=== PATIENT | male | born 1945 | race Hispanic/Latino ===

== ENCOUNTER 2019-01-11 06:03 | Day surgery (SDC) | payer MEDICARE ==
[2019-01-01 18:32] VITALS: BMI 28.1
[2019-01-11] MEDS ORDERED: Lactated Ringer's 1,000 ML IV ONE (07:00)
--- NOTE | 2019-01-11 07:24 | CP.SDSHP ---
Same Day Surgery H & P - History Proposed Procedure: Left shoulder arthroscopy Pre-Op Diagnosis: Left shoulder rotator cuff tear - Previous Medical/Surgical History Cardiac: Hypertension, ASHD/CAD, Arrhythmia (Atrial fibrillation) Misc: Other (HLD, hypothyroid, gout) Pain: 4.Moderate Pain Previous Surgical History: R shoulder arthroscopy, left foot surgery, hiatal hernia repair, lumbar spine surgery, cardiac ablation - Allergies Allergies: Allergies No Known Allergies Allergy (Verified 01/01/19 18:32) - Current Medications Current Medications: as per med rec - Physical Exam General Appearance: NAD Vital Signs: Vital Signs 01/11/19 06:50 Temperature 97.6 F Pulse Rate 53 L Respiratory 18 Rate Blood Pressure 113/69 O2 Sat by Pulse 95 Oximetry Mental Status: Alert & Oriented x3 Neuro: WNL Heart: WNL Lungs: WNL GI: WNL Social History: Alcohol (occasionally) - {Optional Preform as Required} Abdomen: WNL Integument: WNL Ortho: Other (Left shoulder: limited ROM 2nd to pain, motor and sensation intact AXN/MN/UN/RN, radial pulse intact) ENT: WNL - Impression Impression: Patient presents for elective L shoulder arthroscopy for chronic left shoulder pain following a fall at home a few months ago. The pain has progressively worsened over the past few months. The patient has failed conservative means with PT, oral meds and has opted for surgical management. Medical clearance in the chart. Risks/benefits/alternatives were explained to the patient who understands and agrees to proceed with above procedure. Pt. Evaluated Today:Candidate for Anesthesia & Procedure: Yes - Date & Time Date: 01/11/19 Time: 07:25 Short Stay Discharge - Short Stay Discharge Admitting Diagnosis/Reason for Visit: M75.12/M75.122/M19.019 Disposition: HOME/ ROUTINE Medications: oxyCODONE/Acetaminophen [Percocet 5/325 mg Tab] 2 ea PO Q6 PRN #30 tab PRN Reason: Pain, Severe (8-10)
[2019-01-11] MEDS ORDERED: Rocuronium 10 mg/ml (5 ml) ONE (07:52)
[2019-01-11] MEDS ORDERED: Lidocaine 4% (Laryng-O-Jet) Kit MM ONE (07:52)
[2019-01-11] MEDS ORDERED: Succinylcholine Chloride 20 mg/ml Syr (5 ml) IV ONE (07:52)
[2019-01-11] MEDS ORDERED: Propofol 10 mg/ml Inj (20 ML) ONE (07:52)
[2019-01-11] MEDS ORDERED: Sevoflurane - Inhalation Anesthetic Liq (250 ml) ONE (07:55)
[2019-01-11] MEDS ORDERED: Bacitracin Ointment 30 GM TUBE ONE (07:57)
[2019-01-11] MEDS ORDERED: Ropivacaine 0.5% 30ML IV ONE (07:58)
[2019-01-11] MEDS ORDERED: EPINEPHrine 1 mg/ml (1:1000) Inj ONE (08:49)
[2019-01-11] MEDS ORDERED: Bupivacaine 0.5% Inj(30mL) ONE (08:50)
[2019-01-11] MEDS ORDERED: MethylPREDNISolone Depo 40 mg/ml Inj ONE (08:50)
[2019-01-11] MEDS ORDERED: Lidocaine 1% Inj (20ml) ONE (09:01)
[2019-01-11] MEDS ORDERED: EPINEPHrine 1 mg/ml (1:1000) Inj IV ONE (09:20)
[2019-01-11] MEDS ORDERED: Dexamethasone 4 mg/1 ml ONE (09:53)
[2019-01-11] MEDS ORDERED: Lidocaine 1% Inj (20ml) IJ ONE (10:16)
[2019-01-11] MEDS ORDERED: Sodium Chloride 0.9% 10 ML IV ONE (10:39)
[2019-01-11] MEDS ORDERED: ePHEDrine 50 mg/ml Inj ONE (10:39)
[2019-01-11] MEDS ORDERED: Bacitracin OINT 15GM TOP ONE (11:50)
[2019-01-11] MEDS ORDERED: Bupivacaine HCl 0.5% PF (30 ml) Inj IJ ONE (11:50)
[2019-01-11] MEDS ORDERED: methylPREDNISolone Depo 80 mg/ml Inj IM ONE (11:50)
[2019-01-11] MEDS ORDERED: Neostigmine 1:1000 (1 mg/ml) Inj ONE (12:00)
[2019-01-11] MEDS ORDERED: Lactated Ringer's 500 ML IV ONE (12:00)
[2019-01-11] MEDS ORDERED: Oxycodone/Acetaminophen 5/325 mg Tab PO PRN (12:02)
--- NOTE | 2019-01-11 12:35 | PCM.SURG1 ---
Surgeon's Initial Post Op Note - Surgeon's Notes Surgeon: Gricelda Inventory Control Supervisor: VERONIQUE Anthony Type of Anesthesia: General Endo, Block Regional Anesthesia Administered By: Dr bennie amezcua Pre-Operative Diagnosis: Grade 3 rotator cuff tear. labral tear L shoulder. biceps tendon partial tear/avulsion. A/C joint arthropathy. glenohumeral arthritis/synovitis. subacromial adhesions/. bursitis subacromial space Operative Findings: gr 3 rotator cuff tear. biceps tendon long head avulsion. tear glenoid labrum. a/c joint arthritis. glenohumeral synovits/chondrocalcinosis. adhesions/bursitis/chondrocalcinosis glenohumeral joint Post-Operative Diagnosis: as above Operation Performed: arthroscopic repair gr3 rotator cuff tear L shoulder. a rthroscopic labral repair. arthroscopic intraraticular biceps tenodesis. arthroscopic partial distal claviculectomy. arthroscopic acromioplasty. arthroscopic debridement glenohumeral joint. arthroscopic subacromial bursectomy/arhroscopic lysis of adhesions. intrarticular injection Specimen/Specimens Removed: synoviumj/tendon/cartilage/bone Estimated Blood Loss: EBL {In ML}: 10 Blood Products Given: N/A Drains Used: No Drains Post-Op Condition: Fair Date of Surgery/Procedure: 01/11/19 Time of Surgery/Procedure: 10:15 (time in room 9:15- anaetshesia indcution time 9:15)
[2019-01-11] MEDS ORDERED: Dexamethasone 4 mg/1 ml IVP PRN (12:47)
--- NOTE | 2019-01-11 12:49 | PCM.ANESB1 ---
Interscalene Block - Brachial Plexus Date of Procedure: 01/11/19 Anesthesiologist: Sorin Matos Pre-Procedure Diagnosis: Left shoulder rotator cuff tear Post-Procedure Diagnosis: Same Procedure Performed: Interscalene Block of Brachial Plexus Left - Procedure Interscalene Block of Brachial Plexus: This procedure was explained to the patient that it is for post-operative pain management. Consent was obtained after a thorough discussion with the patient regarding the benefits and possible complications of local anesthetic block of the Brachial Plexus at the Interscalene area. The patient was brought to the Operating Room and standard monitors were applied. Time out was held with the circulating nurse to confirm the correct surgery and appropriate block. After applying Oxygen by nasal cannula and administering IV Sedation, the patient's head was gently rotated away from the _LEFT operative shoulder and the anterior scalene groove was carefully palpated. The ultrasound transducer was then applied to the skin in the transverse plane and the brachial plexus was visualized lateral to the carotid artery and in between the anterior and middle scalene muscles. After identification,the anterior lateral portion of the neck was prepped with CHloraprep solution three times and Lidocaine 1% was injected subcutaneously for topical analgesia. At this point, a # 22 gauge Stimuplex 2 inches insulated needle was inserted into the interscalene groove and directed in a caudal and midline direction. The needle was inserted lateral to the ultrasound transducer in-plane towards the brachial plexus in a [id number] direction. Needle advancement was performed carefully under direct ultrasound visualization. After repeated negative aspiration,__5___cc of___0.5%__, ropivacaine__were injected and this was followed with _25____cc of __0.5___% ___ropivacaine__. Under ultrasound guidance the local anesthetics were observed surrounding the roots of the brachial plexus. The needle was removed intact and sterile dressing was applied. The patient had stable vital signs, was conscious and in no apparent distress. The patient tolerated the interscalene block of the brachial plexus well with stable vital signs and was prepared for subsequent surgery.
[2019-01-11] MEDS: HYDROmorphone 0.5 mg/0.5 ml ISec IVP PRN ×4 (13:00→13:55)
[2019-01-11] MEDS ORDERED: Lactated Ringer's 1,000 ML IV SCH (13:00)
[2019-01-11 16:06] VITALS: PULSE 65; TEMP 97.4
[2019-01-11 19:10] VITALS: BP 119/74; RESP 20; O2SAT 100
--- NOTE | 2019-01-14 20:27 | OP ---
PROCEDURE DATE: 01/11/2019 PREOPERATIVE DIAGNOSES: 1. Grade 3 rotator cuff tear of the left shoulder. 2. Partial tear of biceps tendon, avulsion of biceps tendon. 3. Labral tear. 4. Acromioclavicular joint arthropathy. 5. Glenohumeral arthritis, synovitis. POSTOPERATIVE DIAGNOSES: 1. Grade 3 rotator cuff tear of left shoulder. 2. Biceps tendon long head evulsion/partial tear. 3. Tear of glenoid labrum. OPERATIVE FINDINGS: 1. Glenohumeral synovitis and chondrocalcinosis. 2. Acromioclavicular joint arthritis and chondrocalcinosis of the glenohumeral joint. 3. Adhesions, synovitis and bursitis with chondrocalcinosis in the subacromial space. OPERATIONS PERFORMED: 1. Arthroscopic repair of grade 3 rotator cuff tear of the left shoulder. 2. Arthroscopic labral repair. 3. Arthroscopic intra-articular biceps tenodesis. 4. Arthroscopic partial distal claviculectomy. 5. Arthroscopic acromioplasty. 6. Arthroscopic debridement of the glenohumeral joint with debridement of chondrocalcinosis. 7. Arthroscopic subacromial bursectomy and arthroscopic lysis of adhesions. 8. Intra-articular injection. SURGEON: Sammy Madison MD SILVER WRAPPER: KIANNA Holm, certified registered nursing international first officer. ANESTHESIA: General endotracheal anesthesia with scalene block regional anesthesia. ANESTHESIOLOGIST: Dr. Sorin Matos. SPECIMENS REMOVED: Synovium, tendon, cartilage and bone. ESTIMATED BLOOD LOSS: 10 mL. BLOOD PRODUCTS: No blood products given. DRAINS: None. POSTOPERATIVE CONDITION: Stable. TIME OF SURGERY: Time in the room, 09:15. Incision time, 10:15. OPERATIVE INDICATION: José Menendez is a 73-year-old gentleman, who presents with persistent pain in the shoulder, which was refractory to conservative approach consisting of anti-inflammatory medication, activity modification, and intra-articular injection therapy. The patient could no longer stand the discomfort. Pros, cons, risks and benefits of various options were discussed at length. 1. The possibility of benign neglect, intra-articular injection. 2. The concept of surgical arthroscopy with possible rotator cuff repair and debridement. 3. Reverse shoulder replacement arthroplasty. Pros, cons, risks and benefits of the arthroscopic approach were discussed with the patient. The possibility of infection, mechanical failure secondary or tertiary surgery was discussed. The patient wishes a more conservative option to be trialed and accomplished even though he is aware that a second operation for the replacement arthroplasty may be indicated. DESCRIPTION OF PROCEDURE: After having obtained informed consent in the above fashion, after having identified side, site and procedure and a critical pause/time-out, after the satisfactory induction of the anesthetic, and the patient identified as José Menendez in the modified tran chair position, the left upper extremity was prepped and draped in the usual fashion for upper extremity surgery. The shoulder positioner was employed. Great care was taken that all bony prominences were well padded. The cervical spine was centralized. This having been accomplished, after sterilely prepping and draping, after having identified side, site and procedure and a critical pause/time-out after the satisfactory induction of the anesthetic, after sterilely prepping and draping, the joint was insufflated with 10 mL of 1% lidocaine without epinephrine. The topographic anatomy of the shoulder had been marked at a point approximately one thumb's breadth inferior and one thumb's breadth medial to lateral aspect of the acromion. The joint was insufflated. A so called mid lateral portal was accomplished as well. A secondary portal was accomplished after the initial portals, taking great care to stay lateral to the coracoid process, using #18-gauge spinal needle anteriorly, followed by #11 blade, followed by spreading and followed by introduction of the cannula. At this point in time with the arthroscope posteriorly, there was found to be an extensive amount of synovitis with chondrocalcinosis in the glenohumeral joint. There was found to be a tear of glenoid labrum with separation. There was found to be a tear of the biceps tendon with avulsion. Please refer to the video photographs. The first step was to essentially debride carefully and extensively the chondrocalcinosis and synovitis at the glenohumeral joint. Please refer to the video photographs. With the arthroscope posteriorly, a thorough but careful debridement of the glenohumeral joint was accomplished. There was found to be evidence of chondrocalcinosis both in the area of the labrum and in the area of the glenohumeral joint as well as in the synovium. There was an extensive amount of exuberant synovitis. With the arthroscope posteriorly, an extensive debridement of the glenohumeral joint was accomplished using a combination of a suction punch for the chondrocalcinosis and the arthroscopic shaver. The inner free edge of the labrum was smoothed using a combination of the arthroscopic shaver and the arthroscopic wand. This having been accomplished, the interval between the labral separation extending anterior to posterior to the root of the biceps tendon was identified anteriorly from the 9 o'clock position to the root of the biceps tendon. Repair of the glenoid labrum was next carried out. This was accomplished first at the 11 o'clock position. The interval was developed using the periosteum elevator. The lasso with the nitinol wire was introduced in that interval around the labrum. The nitinol wire was brought out anteriorly and the luggage tag suture was placed and this having been accomplished, drilling was accomplished at the 11 o'clock position after the anterior aspect of the glenoid had been roughened. Drilling having been accomplished, the PushLock anchor was introduced and the suture was introduced into the PushLock anchor. The PushLock anchor was placed and the initial labral repair was accomplished. The exact same approach was accomplished inferiorly at approximately the 09:30 position. The lasso was accomplished, brought out anteriorly. The anchor was loaded. After drilling, the PushLock anchor was introduced for further repair. The final PushLock anchor for the labrum was introduced at approximately the 11 o'clock position and the exact same procedure was accomplished. At this point in time, the interval between the avulsion of the biceps tendon and the superior aspect of the glenoid labrum was developed using the suction punch. This having been accomplished, the biceps tendon was grasped using the lasso, it was brought through the root of the biceps tendon. The superior aspect having been roughened, drilling was accomplished with the drill bit at the 12 o'clock position at a very tough angle, but it was nevertheless carefully accomplished. The suture having been brought out anteriorly, the PushLock anchor was loaded and the PushLock anchor was introduced, offering the intra-articular biceps tenodesis. The posterior aspect of the glenoid labrum was not found to be detached, but it was found to be torn and it was debrided using a combination of the 3.4 mm Moy Univer suction punch and the arthroscopic shaver. Acceptable position and repair of the labrum and intra-articular biceps tenodesis had been accomplished. Extensive glenohumeral debridement of the synovitis and the arthritic change with chondrocalcinosis was accomplished as well. At this point in time, the arm was placed in dependency and the arthroscope was removed and replaced in the subacromial space. The so-called mid lateral portal or [place] approach was accomplished using #18-gauge spinal needle, followed by #11 blade, and followed by spreading. With the arthroscope posteriorly, the arthroscopic shaver was placed in the subacromial space. With the arthroscopic shaver posteriorly, a thorough debridement of the subacromial space was accomplished using the arthroscopic shaver. There was found to be evidence of chondrocalcinosis in the area of the subacromial space. There was an extensive amount of bursitis and adhesions in the subacromial space. Using the arthroscopic wand, the soft tissue at the undersurface of the acromion was debrided and a careful and extensive debridement of the glenohumeral joint was accomplished. With the arthroscope posteriorly, extensive debridement in the subacromial space was accomplished using the arthroscopic shaver and the arthroscopic wand. With the arthroscope posteriorly, the soft tissue at the inferior aspect of the acromion was carefully debrided. Chondrocalcinosis was debrided. Adhesions were debrided. Partial bursectomy was accomplished. This having been accomplished, there was found to be evidence of a grade 3 tear of the rotator cuff with evidence of chondrocalcinosis in the humeral head. Chondrocalcinosis in the humeral head was debrided and at this point in time from the lateral portal, using the so-called luggage tag technique with the cuff grasper having been placed, the cuff tear was mobilized and found to completely cover the humeral head. Extensive debridement of the subacromial space superficial to this was carefully debrided using a combination of the arthroscopic shaver and the arthroscopic wand. With the arthroscope posteriorly, a secondary portal, a fourth portal was accomplished posterolaterally using #18-gauge spinal needle, followed by #11 blade, and followed by spreading introduction of the blunt trocar. This having been accomplished from the posterolateral portal with the arthroscope mid laterally and with the grasper posterolaterally, the cuff was mobilized. The arthroscope was now placed posterolaterally and from the direct lateral portal with the arm in abduction and internal rotation, the first luggage tag suture was placed anteriorly in the rotator cuff tear, after the rotator cuff tear had been freshened. Using the scorpion, the suture was brought out. Secondary luggage tag suture was placed posteriorly and this was brought out as well. The luggage tag technique having been accomplished from the mid lateral portal with the arm in abduction and internal rotation, excellent mobilization of the cuff was used for coverage. Again, it should be noted that an extensive debridement and lysis of adhesions of the subacromial space had been accomplished. At this point in time, the PushLock anchor with the screw introduction was placed in the lateral portal. It was impacted down to the area of the SwiveLock and at this point in time with the arm in abduction and internal rotation, the SwiveLock was introduced and buried satisfactorily. The cuff repair was found to be excellent. The suture was clipped after repair. The SwiveLock anchor having been introduced, the additional suture was removed. Coverage was found to be excellent. Further debridement of the subacromial space was accomplished. With the arthroscope mid laterally, using the arthroscopic bur, a partial acromioplasty was accomplished. Partial acromioplasty was accomplished using the arthroscopic bur and an extensive partial acromioplasty having been accomplished, the acromioclavicular joint was thus exposed. The lateral aspect of the acromion was carefully debrided to allow access to the distal aspect of the clavicle. With the arthroscope mid laterally at this point in time, using a combination of the 5.2 mm Moy Univer suction punch, the capsule of the acromioclavicular joint was carefully debrided using the arthroscopic wand. This was debrided and with the arthroscope mid laterally, using the arthroscopic bur, a partial distal claviculectomy was accomplished from the articular surface to approximately 1 cm. This having been accomplished, a partial distal claviculectomy was accomplished to approximately 1 cm. Further debridement of subacromial space was accomplished. Bleeding points were controlled with the arthroscopic wand. With the arm now placed in the normal gentle dependency, arthroscopic portals were closed with interrupted Vicryl and nylon. Intra-articular injection of Depo-Medrol and lidocaine was accomplished. Compression dressing and gunslinger splint was applied. The operation could not have been completed without the assistantship of Rosanne Quezada, certified registered nursing international first officer. Sammy Madison MD [facility] # [id number]
== END 2019-01-11 20:10 | disposition home or self-care (01) ==
LOC: H.OPSURG 06:03
PROVIDERS: ATTEND Orthopaedic Surgery
DX: M75.122 Complete rotator cuff tear or rupture of left shoulder, not specified as traumatic (principal); E78.5 Hyperlipidemia, unspecified; I10 Essential (primary) hypertension; E03.9 Hypothyroidism, unspecified; M10.9 Gout, unspecified; I48.91 Unspecified atrial fibrillation; I25.10 Atherosclerotic heart disease of native coronary artery without angina pectoris; M75.102 Unspecified rotator cuff tear or rupture of left shoulder, not specified as traumatic; M65.812 Other synovitis and tenosynovitis, left shoulder; M19.012 Primary osteoarthritis, left shoulder; M75.02 Adhesive capsulitis of left shoulder; G89.29 Other chronic pain
CPT/HCPCS: 29826; 29827; 29828; C1713; J0171; J0690; J1030; J1040; J1100; J1170; J2001; J2405; J2704; J2710; J3010; J7030; J7120

== ENCOUNTER 2019-01-13 22:36 | Emergency (ER) | payer MEDICARE ==
[2019-01-13 22:36] VITALS: BMI 28.1
[2019-01-13 22:45] VITALS: BP 138/74; PULSE 76; RESP 16; O2SAT 99
--- NOTE | 2019-01-13 23:11 | ED PDOC ---
Upper Extremity Pain/Injury Time Seen by Provider: 01/13/19 23:01 Chief Complaint (Nursing): Upper Extremity Problem/Injury Chief Complaint (Provider): Upper Extremity Problem/Injury History Per: Patient History/Exam Limitations: no limitations Onset/Duration Of Symptoms: Days (x2) Current Symptoms Are (Timing): Still Present Additional Complaint(s): 73 y/o male with a PMHx of Atrial Fibrillation and IBS presents to the ED with concerns of a possible infection s/p shoulder surgery, onset two days ago. Patient reports of developing a fever of 103.0 on shortly after a right rotator cuff shoulder surgery performed by Dr. Madison. Patient states fever has been fluctuating since onset and requests to be evaluated for a possible infection. Otherwise, patient denies vomiting and nausea. Of note, patient additionally reporting of urinary frequency. PMD: Gio Rubio Surgeon: Sammy Madison III Past Medical History Reviewed: Historical Data, Nursing Documentation, Vital Signs Vital Signs: Last Vital Signs Temp 98.7 F 01/13/19 22:42 Pulse 76 01/13/19 22:42 Resp 16 01/13/19 22:42 BP 138/74 01/13/19 22:42 Pulse Ox 99 01/13/19 22:42 - Medical History PMH: Arthritis (LEFT KNEE), Hypercholesterolemia, Hypothyroidism (ON LEVOTHYROXINE 0.25 MG DAILY-HS) Denies: Chronic Kidney Disease - Surgical History Surgical History: Tonsillectomy Other surgeries: Right rotator cuff surgery - Family History Family History: States: Unknown Family Hx - Home Medications Home Medications: Ambulatory Orders Medication Instructions Recorded Aspirin [Adult Aspirin] 81 mg PO DAILY 01/11/19 Colchicine [Colcrys] 0.5 mg PO ASDIR PRN 01/11/19 Levothyroxine [Synthroid] 25 mcg PO DAILY 01/11/19 Linaclotide [Linzess] 72 mcg PO ASDIR PRN 01/11/19 Simvastatin [Zocor] 20 mg PO DAILY 01/11/19 Sotalol [Betapace] 120 mg PO QAM 01/11/19 Sotalol [Sorine] 80 mg PO QPM 01/11/19 oxyCODONE/Acetaminophen [Percocet 2 ea PO Q6 PRN #30 tab 01/11/19 5/325 mg Tab] - Allergies Allergies/Adverse Reactions: Allergies Allergy/AdvReac Type Severity Reaction Status Date / Time No Known Allergies Allergy Verified 01/14/19 21:00 Review of Systems ROS Statement: Except As Marked, All Systems Reviewed And Found Negative Constitutional: Positive for: Fever Physical Exam - Reviewed Nursing Documentation Reviewed: Yes Vital Signs Reviewed: Yes - Physical Exam Appears: Positive for: Well, No Acute Distress Extremity: Positive for: Other ([address] with no erythema or induration.). Negative for: Swelling - Laboratory Results Result Diagrams: 01/13/19 23:15 01/13/19 23:15 - ECG O2 Sat by Pulse Oximetry: 99 (RA) Pulse Ox Interpretation: Normal Medical Decision Making Medical Decision Making: Time: 8 A/P: Workup for possible underlining infection -- 3 laproscopic sutures with no obvious infection at incision site. -- No erythema, swelling or induration noted on exam to suggestion infection -- Flu and labs ordered for further workup -- BMP -- CBC with Differentials -- Motrin 800 mg PO -- Influenza A B 0000 Labs WNL and pt remains afebrile. PT to be discharged home and will follow up with PMD/orthopedic surgeon on Tuesday. Return parameters discussed. Scribe Attestation: Documented by Jan Martins, acting as a scribe for Carolina Blakely MD. Provider Scribe Attestation: All medical record entries made by the Scribe were at my direction and personally dictated by me. I have reviewed the chart and agree that the record accurately reflects my personal performance of the history, physical exam, medical decision making, and the department course for this patient. I have also personally directed, reviewed, and agree with the discharge instructions and disposition. Disposition - Clinical Impression Clinical Impression: Fever - Disposition Referrals: Sammy Madison III, MD [Staff Provider] - Disposition: Routine/Home Disposition Time: 00:00 Condition: IMPROVED Additional Instructions: Continue with post-operative care as instructed. Follow up with Dr. Madison. Return to the emergency room if you develop fever over 100.3 or if you develop worsened pain, swelling, redness, or drainage at surgical site. Instructions: Fever, Adult (DC), When to Worry About a Fever Forms: [facility] (Albanian) Print Language: AZERI
[2019-01-13 23:54] LABS: BASO # 0.1 K/uL (0.0-0.2); BASO % 0.8 % (0.0-2.0); EOS # 0.1 K/uL (0.0-0.7); EOS % 0.6 % (0.0-4.0); LYMPH # 1.6 K/uL (1.0-4.3); LYMPH % 18.9 % (20.0-40.0); MEAN CELL VOLUME 88.5 fl (80.0-94.0); MEAN CORPUSCULAR HEMOGLOBIN 29.7 pg (27.0-31.0); MEAN CORPUSCULAR HGB CONC 33.6 g/dL (33.0-37.0); MEAN PLATELET VOLUME 8.7 fl (7.2-11.7); MONO # 0.9 K/uL (0.0-0.8); MONO % 10.1 % (0.0-10.0); NEUT # 6.1 K/uL (1.8-7.0); NEUT % 69.6 % (50.0-75.0); NRBC % 0.1 % (0.0-0.0); RBC 4.03 Mil/uL (4.40-5.90); WHITE BLOOD COUNT 8.7 K/uL (4.8-10.8)
[2019-01-14 00:10] LABS: BLOOD UREA NITROGEN 17 mg/dl (9-20); CALCIUM 9.5 mg/dL (8.4-10.2); GFR NON-AFRICAN AMERICAN > 60
[2019-01-14 01:03] VITALS: TEMP 99.3
== END 2019-01-14 01:05 | disposition home or self-care (01) ==
LOC: H.ER 22:36
DX: R50.9 Fever, unspecified (principal); E03.9 Hypothyroidism, unspecified; Z98.890 Other specified postprocedural states

== ENCOUNTER 2019-01-14 20:49 | Emergency (ER) | payer MEDICARE ==
[2019-01-14 20:49] VITALS: BMI 28.1
--- NOTE | 2019-01-14 21:44 | ED PDOC ---
Upper Extremity Pain/Injury <Bar eDy - Last Filed: 01/15/19 01:04> Chief Complaint (Provider): fever and left arm pain History Per: Patient History/Exam Limitations: no limitations Additional Complaint(s): 73 y/o M with hx of Afib who presents with left arm pain and fevers. Patient states that he had left shoulder surgery performed by Dr. Madison on 01/11. Since then has been having intermittent fevers up to 100.3. He was seen in ED yesterday 01/13 and had blood work with normal findings so was sent home with reassurance. Pt continued to feel feverish at home with Tmax 100.7F and is now having left elbow pain and left forearm/hand swelling so came in for re- evaluation. <Rachana Mcdaniels - Last Filed: 01/15/19 03:42> Time Seen by Provider: 01/14/19 21:14 Chief Complaint (Nursing): Fever Past Medical History Vital Signs: Last Vital Signs Temp 99.6 F 01/14/19 23:24 Pulse 79 01/14/19 21:01 Resp 16 01/14/19 21:01 BP 138/81 01/14/19 21:01 Pulse Ox 95 01/14/19 21:43 <Bar Dey - Last Filed: 01/15/19 01:04> Reviewed: Historical Data, Nursing Documentation, Vital Signs Vital Signs: Last Vital Signs Temp 98.2 F 01/14/19 21:01 Pulse 79 01/14/19 21:01 Resp 16 01/14/19 21:01 BP 138/81 01/14/19 21:01 Pulse Ox 95 01/14/19 21:01 - Medical History PMH: Arthritis (LEFT KNEE), Atrial Fibrillation, Hypercholesterolemia, Hypothyroidism (ON LEVOTHYROXINE 0.25 MG DAILY-HS) Denies: Chronic Kidney Disease - Surgical History Surgical History: Tonsillectomy - Family History Family History: States: Unknown Family Hx <Rachana Mcdaniels - Last Filed: 01/15/19 03:42> - Home Medications Home Medications: Ambulatory Orders Medication Instructions Recorded Aspirin [Adult Aspirin] 81 mg PO DAILY 01/11/19 Colchicine [Colcrys] 0.5 mg PO ASDIR PRN 01/11/19 Levothyroxine [Synthroid] 25 mcg PO DAILY 01/11/19 Linaclotide [Linzess] 72 mcg PO ASDIR PRN 01/11/19 Simvastatin [Zocor] 20 mg PO DAILY 01/11/19 Sotalol [Betapace] 120 mg PO QAM 01/11/19 Sotalol [Sorine] 80 mg PO QPM 01/11/19 oxyCODONE/Acetaminophen [Percocet 2 ea PO Q6 PRN #30 tab 01/11/19 5/325 mg Tab] - Allergies Allergies/Adverse Reactions: Allergies Allergy/AdvReac Type Severity Reaction Status Date / Time No Known Allergies Allergy Verified 01/14/19 21:00 Review of Systems Constitutional: Positive for: Fever, Chills Musculoskeletal: Positive for: Shoulder Pain, Arm Pain <Rachana Mcdaniels - Last Filed: 01/15/19 03:42> Physical Exam - Reviewed Nursing Documentation Reviewed: Yes Vital Signs Reviewed: Yes - Physical Exam Appears: Positive for: Non-toxic Pulses-Radial (L): 2+ Extremity: Positive for: Tenderness (on palpation of left elbow), Capillary Refill (< 2 sec), Swelling (left elbow, forearm and hand mild swelling), Other (Left shoulder with 4 laparoscopic puncture wounds, no erythema/edema/drainage noted. ). Negative for: Normal ROM (decreased ROM with flexion and extension of left elbow and left shoulder. ), Deformity Neurological/Psych: Positive for: Awake, Alert, Oriented <Rachana Mcdaniels - Last Filed: 01/15/19 03:42> - Laboratory Results Result Diagrams: 01/14/19 22:00 01/14/19 22:00 Lab Results: Urine Color Yellow (YELLOW) 01/14/19 22:30 Urine Clarity Clear (Clear) 01/14/19 22:30 Urine pH 8.0 (5.0-8.0) 01/14/19 22:30 Ur Specific [place] 1.018 (1.003-1.030) 01/14/19 22:30 Urine Protein 30 mg/dL (NEGATIVE) 01/14/19 22:30 Urine Glucose (UA) Neg mg/dL (NEGATIVE) 01/14/19 22:30 Urine Ketones Negative mg/dL (NEGATIVE) 01/14/19 22:30 Urine Blood Negative (NEGATIVE) 01/14/19 22:30 Urine Nitrate Negative (NEGATIVE) 01/14/19 22:30 Urine Bilirubin Negative (NEGATIVE) 01/14/19 22:30 Urine Urobilinogen 4.0 mg/dL (0.2-1.0) 01/14/19 22:30 Ur Leukocyte Esterase Neg Meliza/uL (Negative) 01/14/19 22:30 Urine RBC (Auto) 5 /hpf (0-3) H 01/14/19 22:30 Urine Microscopic WBC < 1 /hpf (0-5) 01/14/19 22:30 Ur Squamous Epith Cells 1 /hpf (0-5) 01/14/19 22:30 <Bar Dey - Last Filed: 01/15/19 01:04> - Laboratory Results Result Diagrams: 01/14/19 22:00 01/14/19 22:00 - ECG O2 Sat by Pulse Oximetry: 95 <Rachana Mcdaniels - Last Filed: 01/15/19 03:42> Medical Decision Making Medical Decision Makin:42 US LUE Real-time ultrasound images with Doppler evaluation. Real-time ultrasound images of the deep venous system with Doppler evaluation. Normal compression, spontaneity and augmentation. Normal color Doppler. No intraluminal thrombus is seen. IMPRESSION: No evidence of deep venous thrombosis. <Bar Dey - Last Filed: 01/15/19 01:04> Medical Decision Making: LUE U/S ESR CBC, BMP, BLood cultures U/A Pt febrile to 100.7f. Tylenol 975mg PO x 1 ordered. LUE U/S as above. Patient to be admitted for Left forearm cellulitis for antibiotics. Vanco 1G IV x 1 and Zosyn 3.375mg IV x 1 ordered. VBG lactate ordered. 03:00am: Case d/w Dr. Owens who accepts admission. Care transferred and bridge orders placed. <Rachana Mcdaniels - Last Filed: 01/15/19 03:42> Disposition <Bar Dey - Last Filed: 01/15/19 01:04> - Patient ED Disposition Is Patient to be Admitted: Yes Discussed With DrDiana: Haja Owens Counseled Patient/Family Regarding: Studies Performed, Diagnosis - Disposition Disposition: Transfer of Care Disposition Time: 02:42 <Rachana Mcdaniels - Last Filed: 01/15/19 03:42> - Clinical Impression Clinical Impression: Cellulitis of forearm, left - Disposition Condition: STABLE Forms: [facility] ([place])
[2019-01-14 22:30] LABS: BASO # 0.1 K/uL (0.0-0.2); BASO % 0.7 % (0.0-2.0); EOS % 0.4 % (0.0-4.0); HEMOGLOBIN 12.9 g/dL (12.0-18.0); LYMPH # 1.3 K/uL (1.0-4.3); LYMPH % 13.6 % (20.0-40.0); MEAN CELL VOLUME 88.8 fl (80.0-94.0); MEAN CORPUSCULAR HEMOGLOBIN 29.9 pg (27.0-31.0); MEAN CORPUSCULAR HGB CONC 33.7 g/dL (33.0-37.0); MEAN PLATELET VOLUME 8.8 fl (7.2-11.7); MONO # 0.9 K/uL (0.0-0.8); MONO % 9.8 % (0.0-10.0); NEUT # 7.3 K/uL (1.8-7.0); NEUT % 75.5 % (50.0-75.0); RBC 4.3 Mil/uL (4.40-5.90); RED CELL DISTRIBUTION WIDTH 13.3 % (11.5-14.5); WHITE BLOOD COUNT 9.7 K/uL (4.8-10.8)
[2019-01-14 22:34] LABS: BLOOD UREA NITROGEN 18 mg/dl (9-20); CALCIUM 9.6 mg/dL (8.4-10.2); GFR NON-AFRICAN AMERICAN > 60
[2019-01-14 22:42] LABS: SQUAMOUS EPITHIAL 1 /hpf (0-5); URINE BILIRUBIN NEGATIVE (NEGATIVE); URINE BLOOD NEGATIVE (NEGATIVE); URINE CLARITY CLEAR (Clear); URINE COLOR YELLOW (YELLOW); URINE GLUCOSE (UA) NEG (NEGATIVE); URINE LEUKOCYTE ESTERASE NEG Leu/uL (Negative); URINE PROTEIN 30 mg/dL (NEGATIVE)
[2019-01-15] MEDS ORDERED: Piperacillin/Tazobact 3.375 GM in Sodium Chloride 0.9% 100 ML IVPB STA (02:46)
--- NOTE | 2019-01-15 04:01 | CP.PCM.HP ---
<Terence Man - Last Filed: 01/15/19 04:38> History of Present Illness - History of Present Illness History of Present Illness: 73 y/o M with PMHx of A-Fib, HLD, hypothyroidism and PSHx of Left rotator cuff surgery on 01/11 presents to ED with fever and elbow pain. Patient undergo left shoulder rotator cuff repair with Dr. Madison on 01/11. On 01/12 evening patient started having low grade temp with Tmax of 100.3. On 01/13 patient was seen in ED for fever and was discharged home after normal blood work. Due to persistence of fever with T max 100.7 patient came to ED on 01/14. Patient denies taking any medications at home. Patient also reports chills, swelling of elbow, fingers and inability to move elbow joint. Denies any nausea, vomiting, neck pain, headache, dizziness, CP or SOB. PMD: Dr. Anthony Roque PMHx: A- Fib, HLD, hypothyroidism PSHx: L shoulder arthroscopy, R shoulder arthroscopy, left foot surgery, hiatal hernia repair, lumbar spine surgery, cardiac ablation Allergies: NKDA F/H: Denies Social Hx: Denies smoking, drugs, 1/2 bottle of wine per week Medications: As per med rec, med list verified ED Course: Vitals: T: 100.6, HR 76, BP 138/61, RR 16 SPO2 95% on RA Labs: CBC 9.7 > 12.9/ 38.2 < 174, BMP and UA unremarkable, ESR 49 Doppler Left US: No evidance of DVT. Awaiting official report. Meds: Vancomycin and zosyn x 1, Tylenol 975 mg once Present on Admission - Present on Admission Any Indicators Present on Admission: No History of DVT/PE: No History of Uncontrolled Diabetes: No Urinary Catheter: No Decubitus Ulcer Present: No Review of Systems - Review of Systems Systems not reviewed;Unavailable: Acuity of Condition - Constitutional Constitutional: Chills, Fever - EENT Eyes: absent: Change in Vision Nose/Mouth/Throat: absent: Nasal Congestion - Cardiovascular Cardiovascular: absent: Chest Pain, Chest Pain at Rest, Dyspnea, Dyspnea on Exertion - Respiratory Respiratory: absent: Cough, Dyspnea, Dyspnea on Exertion - Gastrointestinal Gastrointestinal: absent: Abdominal Pain, Nausea, Vomiting - Genitourinary Genitourinary: absent: Change in Urinary Stream - Musculoskeletal Musculoskeletal: Arthralgias, Joint Swelling, Limited Range of Motion. absent: Back Pain - Integumentary Integumentary: Swelling Past Patient History - Past Medical History & Family History Past Medical History?: Yes - Past Social History Smoking Status: Former Smoker - CARDIAC Hx Atrial Fibrillation: Yes Hx Hypercholesterolemia: Yes - PULMONARY Hx Respiratory Disorders: No - NEUROLOGICAL Hx Neurological Disorder: No - HEENT Hx HEENT Problems: No Other/Comment: WEARS GLASSES - RENAL Hx Chronic Kidney Disease: No - ENDOCRINE/METABOLIC Hx Hypothyroidism: Yes (ON LEVOTHYROXINE 0.25 MG DAILY-HS) - HEMATOLOGICAL/ONCOLOGICAL Hx Blood Disorders: No Hx Blood Transfusions: No - INTEGUMENTARY Hx Dermatological Problems: No - MUSCULOSKELETAL/RHEUMATOLOGICAL Hx Arthritis: Yes (LEFT KNEE) - GASTROINTESTINAL Hx Gastrointestinal Disorders: Yes Other/Comment: IBS - GENITOURINARY/GYNECOLOGICAL Hx Genitourinary Disorders: No - PSYCHIATRIC Hx Psychophysiologic Disorder: No Hx Substance Use: No - SURGICAL HISTORY Hx Tonsillectomy: Yes - ANESTHESIA Hx Anesthesia: Yes Hx Anesthesia Reactions: No (TAKES A WHILE TO WAKE UP) Hx Malignant Hyperthermia: No Meds Allergies/Adverse Reactions: Allergies Allergy/AdvReac Type Severity Reaction Status Date / Time No Known Allergies Allergy Verified 01/14/19 21:00 Physical Exam - Constitutional Appears: No Acute Distress - Head Exam Head Exam: ATRAUMATIC, NORMAL INSPECTION, NORMOCEPHALIC - Eye Exam Eye Exam: EOMI, Normal appearance, PERRL Pupil Exam: NORMAL ACCOMODATION - ENT Exam ENT Exam: Mucous Membranes Moist - Neck Exam Neck exam: Positive for: Full Rom - Respiratory Exam Respiratory Exam: Clear to Auscultation Bilateral, NORMAL BREATHING PATTERN - Cardiovascular Exam Cardiovascular Exam: REGULAR RHYTHM, +S1, +S2 - GI/Abdominal Exam GI & Abdominal Exam: Normal Bowel Sounds, Soft. absent: Tenderness - Extremities Exam Extremities exam: Positive for: tenderness Additional comments: L elbow tendernesss, minimal erythema and swelling of elbow and hands. Motor and sensory intact B/L UE. - Neurological Exam Neurological exam: Alert, Oriented x3 - Psychiatric Exam Psychiatric exam: Normal Affect, Normal Mood - Skin Skin Exam: Dry, Intact, Normal Color, Warm Results - Vital Signs Recent Vital Signs: Last Vital Signs Temp 99.6 F 01/14/19 23:24 Pulse 79 01/14/19 21:01 Resp 16 01/14/19 21:01 BP 138/81 01/14/19 21:01 Pulse Ox 95 01/15/19 03:42 - Labs Result Diagrams: 01/14/19 22:00 01/14/19 22:00 Labs: Laboratory Results - last 24 hr 01/14/19 01/14/19 01/14/19 22:00 22:00 22:30 WBC 9.7 RBC 4.30 L Hgb 12.9 Hct 38.2 MCV 88.8 MCH 29.9 MCHC 33.7 RDW 13.3 Plt Count 174 MPV 8.8 Neut % (Auto) 75.5 H Lymph % (Auto) 13.6 L [place] % (Auto) 9.8 Eos % (Auto) 0.4 Baso % (Auto) 0.7 Neut # (Auto) 7.3 H Lymph # (Auto) 1.3 [place]ha # (Auto) 0.9 H Eos # (Auto) 0.0 Baso # (Auto) 0.1 ESR 49 H Sodium 138 Potassium 3.8 Chloride 98 Carbon Dioxide 31 H Anion Gap 13 BUN 18 Creatinine 1.1 Est GFR ( Amer) > 60 Est GFR (Non-Af Amer) > 60 Random Glucose 121 H Calcium 9.6 Urine Color Yellow Urine Clarity Clear Urine pH 8.0 Ur Specific [place] 1.018 Urine Protein 30 Urine Glucose (UA) Neg Urine Ketones Negative Urine Blood Negative Urine Nitrate Negative Urine Bilirubin Negative Urine Urobilinogen 4.0 Ur Leukocyte Esterase Neg Urine RBC (Auto) 5 H Urine Microscopic WBC < 1 Ur Squamous Epith Cells 1 Assessment & Plan - Assessment and Plan (Free Text) Assessment: 73 y/o M with PMHx of A-Fib, HLD, hypothyroidism and PSHx of Left rotator cuff surgery on 01/11 presented with fever and elbow pain admitted for evaluation of possible cellulites. Plan: Left elbow pain - Likely secondary to complex regional pain syndrome, R/O cellulites - S/P Vancomycin and Zosyn in ED - US doppler UE: Negative for DVT, Awaiting official read - Started on Vancomycin 1 gm Q12 - ID Dr. Lorenzana consulted - Ortho Dr. Madison consulted - PT/OT eval - Tylenol and Toradol for mild - moderate pain - F/U Procalcitonin, Blood Cx Hypothyroidism - Resume Synthroid 25 mcg H/O A fib, S/P ablation - Resume Sotolol 120/80 mg - ASA 81 mg HLD - Resume simvastatin DVT prophylaxis - SCDs Diet - Heart healthy diet <RomanHaja Ku - Last Filed: 01/15/19 11:10> Results - Vital Signs Recent Vital Signs: Last Vital Signs Temp 97.9 F 01/15/19 10:44 Pulse 73 01/15/19 10:44 Resp 20 01/15/19 10:44 BP 128/61 01/15/19 10:44 Pulse Ox 97 01/15/19 10:44 - Labs Result Diagrams: 01/14/19 22:00 01/14/19 22:00 Labs: Laboratory Results - last 24 hr 01/14/19 01/14/19 01/14/19 22:00 22:00 22:30 WBC 9.7 RBC 4.30 L Hgb 12.9 Hct 38.2 MCV 88.8 MCH 29.9 MCHC 33.7 RDW 13.3 Plt Count 174 MPV 8.8 Neut % (Auto) 75.5 H Lymph % (Auto) 13.6 L [place] % (Auto) 9.8 Eos % (Auto) 0.4 Baso % (Auto) 0.7 Neut # (Auto) 7.3 H Lymph # (Auto) 1.3 Desha # (Auto) 0.9 H Eos # (Auto) 0.0 Baso # (Auto) 0.1 ESR 49 H pO2 VBG pH VBG pCO2 VBG HCO3 VBG Total CO2 VBG O2 Sat (Calc) VBG Base Excess VBG Potassium Glucose Lactate FiO2 Sodium 138 Potassium 3.8 Chloride 98 Carbon Dioxide 31 H Anion Gap 13 BUN 18 Creatinine 1.1 Est GFR ( Amer) > 60 Est GFR (Non-Af Amer) > 60 Random Glucose 121 H Calcium 9.6 Venous Blood Potassium Urine Color Yellow Urine Clarity Clear Urine pH 8.0 Ur Specific [place] 1.018 Urine Protein 30 Urine Glucose (UA) Neg Urine Ketones Negative Urine Blood Negative Urine Nitrate Negative Urine Bilirubin Negative Urine Urobilinogen 4.0 Ur Leukocyte Esterase Neg Urine RBC (Auto) 5 H Urine Microscopic WBC < 1 Ur Squamous Epith Cells 1 01/15/19 05:34 WBC RBC Hgb Hct MCV MCH MCHC RDW Plt Count MPV Neut % (Auto) Lymph % (Auto) [place] % (Auto) Eos % (Auto) Baso % (Auto) Neut # (Auto) Lymph # (Auto) [place] # (Auto) Eos # (Auto) Baso # (Auto) ESR pO2 36 VBG pH 7.45 H VBG pCO2 45 VBG HCO3 29.2 VBG Total CO2 32.7 H VBG O2 Sat (Calc) 79.2 H VBG Base Excess 6.4 H VBG Potassium 3.6 Glucose 116 H Lactate 0.8 FiO2 21.0 Sodium 135.0 Potassium Chloride 102.0 Carbon Dioxide Anion Gap BUN Creatinine Est GFR ( Amer) Est GFR (Non-Af Amer) Random Glucose Calcium Venous Blood Potassium 3.6 Urine Color Urine Clarity Urine pH Ur Specific [place] Urine Protein Urine Glucose (UA) Urine Ketones Urine Blood Urine Nitrate Urine Bilirubin Urine Urobilinogen Ur Leukocyte Esterase Urine RBC (Auto) Urine Microscopic WBC Ur Squamous Epith Cells Attending/Attestation - Attestation I have personally seen and examined this patient.: Yes I have fully participated in the care of the patient.: Yes I have reviewed all pertinent clinical information: Yes Notes (Text): 01/15/19 10:59 I saw, examined and discussed this patient with Dr Man. I agree with the assessment and plan outlined. This is a 73 years old male who underwent a left shoulder rotator cuff repair.on the 01/13/19 and came to the ED complaining of pain on the 01/13/19, treated and discharged. He returns on the with the same problem but worse with hypertonic of the left elbow,and forearm along with edema. He will be treated for complex Regional pain Syndrome, With NSAIDs, Consult with Anesthesia for a nerve block. R/O infection and start with Vancmycin and consult to Infectious Disease. Consult Physical Therapy and occupational therapy. Haja Owens MD
[2019-01-15] MEDS ORDERED: Sodium Chloride 0.9% 1,000 ML IV SCH (04:15)
[2019-01-15] MEDS ORDERED: Vancomycin 1 g Inj ONE (04:53)
[2019-01-15 05:37] LABS: VENOUS BLOOD GAS BASE EXCESS 6.4 mmol/L (0.0-2.0); VENOUS BLOOD GAS PCO2 45 mmHg (40-60); VENOUS BLOOD GAS PO2 36 mm/Hg (30-55); VENOUS BLOOD PH 7.45 (7.32-7.43)
[2019-01-15] MEDS ORDERED: Levothyroxine 25 MCG TAB PO SCH (06:30)
--- NOTE | 2019-01-15 08:14 | CP.PCM.CON ---
History of Present Illness - History of Present Illness History of Present Illness: Orthopedic consultation, patient seen and examined with Dr. Madison 73M POD#4 s/p left shoulder arthroscopy returns to ER for continued fevers. He says he has been having fevers of 100.6 at home. He was seen in the ER on 01/13 for same complaint and discharged home, at that time was afebrile, no leukocytosis. He denies headache/CP/SO B/dizziness/palpitations/cough/dysuria/calf swelling or pain. He says shoulder pain is controlled. He has an incentive spirometer at home. He denies any trauma or falls. 01/11/2019 Left shoulder arthroscopy, rotator cuff repair, labral repair, biceps tenodesis, acromioplasty, partial distal claviculectomy, debridement Review of Systems - Review of Systems All systems: reviewed and no additional remarkable complaints except - Constitutional Constitutional: Fever Past Patient History - Past Medical History & Family History Past Medical History?: Yes Past Family History: Reviewed and not pertinent - Past Social History Smoking Status: Former Smoker - CARDIAC Hx Atrial Fibrillation: Yes Hx Hypercholesterolemia: Yes - PULMONARY Hx Respiratory Disorders: No - NEUROLOGICAL Hx Neurological Disorder: No - HEENT Hx HEENT Problems: No Other/Comment: WEARS GLASSES - RENAL Hx Chronic Kidney Disease: No - ENDOCRINE/METABOLIC Hx Hypothyroidism: Yes (ON LEVOTHYROXINE 0.25 MG DAILY-HS) - HEMATOLOGICAL/ONCOLOGICAL Hx Blood Disorders: No Hx Blood Transfusions: No - INTEGUMENTARY Hx Dermatological Problems: No - MUSCULOSKELETAL/RHEUMATOLOGICAL Hx Arthritis: Yes (LEFT KNEE) - GASTROINTESTINAL Hx Gastrointestinal Disorders: Yes Other/Comment: IBS - GENITOURINARY/GYNECOLOGICAL Hx Genitourinary Disorders: No - PSYCHIATRIC Hx Psychophysiologic Disorder: No Hx Substance Use: No - SURGICAL HISTORY Hx Tonsillectomy: Yes - ANESTHESIA Hx Anesthesia: Yes Hx Anesthesia Reactions: No (TAKES A WHILE TO WAKE UP) Hx Malignant Hyperthermia: No Meds Home Medications: Home Medication List Medication Instructions Recorded Confirmed Type Cephalexin [Keflex] 500 mg PO BID #20 capsule 01/15/19 Rx Allergies/Adverse Reactions: Allergies Allergy/AdvReac Type Severity Reaction Status Date / Time No Known Allergies Allergy Verified 01/14/19 21:00 - Medications Medications: Current Medications Acetaminophen (Tylenol 325mg Tab) 650 mg PO Q6 PRN PRN Reason: Pain, Mild (1-3) Last Admin: 01/15/19 07:07 Dose: 650 mg Aspirin (Ecotrin) 81 mg PO DAILY [facility] Atorvastatin Calcium (Lipitor) 10 mg PO DAILY [facility] Enoxaparin Sodium (Lovenox) 40 mg SC DAILY [facility]; Protocol Sodium Chloride (Sodium Chloride 0.9%) 1,000 mls @ 125 mls/hr IV .Q8H [facility] Last Admin: 01/15/19 06:31 Dose: 125 mls/hr Vancomycin HCl 1 gm/ Sodium (Chloride) 250 mls @ 166.667 mls/hr IVPB Q12 [facility]; Protocol Ketorolac Tromethamine (Toradol) 30 mg IVP Q6 PRN PRN Reason: Pain, severe (8-10) Ketorolac Tromethamine (Toradol) 15 mg IVP Q6 PRN PRN Reason: Pain, moderate (4-7) Levothyroxine Sodium (Synthroid) 25 mcg PO DAILY@0630 [facility] Last Admin: 01/15/19 06:15 Dose: 25 mcg Sotalol HCl (Betapace) 80 mg PO QPM [facility] Sotalol HCl (Betapace) 120 mg PO QAM [facility] Physical Exam - Constitutional Appears: Well, No Acute Distress - Head Exam Head Exam: ATRAUMATIC - Neck Exam Neck exam: Positive for: Full Rom, Normal Inspection - Respiratory Exam Respiratory Exam: NORMAL BREATHING PATTERN - Cardiovascular Exam Additional comments: +radial pulse - Expanded Upper Extremities Exam Left Shoulder exam: swelling (mild, as expected, no erythema) Elbow exam: swelling Forearm Wrist exam: swelling (mild dependent swelling, no erythema, no discoloration) Neuro motor exam: finger 2-5 abduction intact, thumb abduction, thumb IP flexion intact, thumb opposition intact, wrist extension intact Neurosensory exam: median nerve intact, radial nerve intact, ulnar nerve intact Vascular exam: radial pulse - Neurological Exam Neurological exam: Alert, Oriented x3 - Psychiatric Exam Psychiatric exam: Normal Affect, Normal Mood - Skin Additional comments: left shoulder incisions dry, no drainage on dressing, no erythema, healing well, minimal swelling Results - Vital Signs Recent Vital Signs: Last Vital Signs Temp 98.5 F 01/15/19 05:06 Pulse 70 01/15/19 05:06 Resp 17 01/15/19 05:06 BP 143/83 01/15/19 05:06 Pulse Ox 96 01/15/19 05:06 Tmax 100.6 overnight - Labs Result Diagrams: 01/14/19 22:00 01/14/19 22:00 Labs: Laboratory Results - last 24 hr 01/14/19 01/14/19 01/14/19 22:00 22:00 22:30 WBC 9.7 RBC 4.30 L Hgb 12.9 Hct 38.2 MCV 88.8 MCH 29.9 MCHC 33.7 RDW 13.3 Plt Count 174 MPV 8.8 Neut % (Auto) 75.5 H Lymph % (Auto) 13.6 L [place] % (Auto) 9.8 Eos % (Auto) 0.4 Baso % (Auto) 0.7 Neut # (Auto) 7.3 H Lymph # (Auto) 1.3 [place] # (Auto) 0.9 H Eos # (Auto) 0.0 Baso # (Auto) 0.1 ESR 49 H pO2 VBG pH VBG pCO2 VBG HCO3 VBG Total CO2 VBG O2 Sat (Calc) VBG Base Excess VBG Potassium Glucose Lactate FiO2 Sodium 138 Potassium 3.8 Chloride 98 Carbon Dioxide 31 H Anion Gap 13 BUN 18 Creatinine 1.1 Est GFR ( Amer) > 60 Est GFR (Non-Af Amer) > 60 Random Glucose 121 H Calcium 9.6 Venous Blood Potassium Urine Color Yellow Urine Clarity Clear Urine pH 8.0 Ur Specific [place] 1.018 Urine Protein 30 Urine Glucose (UA) Neg Urine Ketones Negative Urine Blood Negative Urine Nitrate Negative Urine Bilirubin Negative Urine Urobilinogen 4.0 Ur Leukocyte Esterase Neg Urine RBC (Auto) 5 H Urine Microscopic WBC < 1 Ur Squamous Epith Cells 1 01/15/19 05:34 WBC RBC Hgb Hct MCV MCH MCHC RDW Plt Count MPV Neut % (Auto) Lymph % (Auto) [place] % (Auto) Eos % (Auto) Baso % (Auto) Neut # (Auto) Lymph # (Auto) [place] # (Auto) Eos # (Auto) Baso # (Auto) ESR pO2 36 VBG pH 7.45 H VBG pCO2 45 VBG HCO3 29.2 VBG Total CO2 32.7 H VBG O2 Sat (Calc) 79.2 H VBG Base Excess 6.4 H VBG Potassium 3.6 Glucose 116 H Lactate 0.8 FiO2 21.0 Sodium 135.0 Potassium Chloride 102.0 Carbon Dioxide Anion Gap BUN Creatinine Est GFR ( Amer) Est GFR (Non-Af Amer) Random Glucose Calcium Venous Blood Potassium 3.6 Urine Color Urine Clarity Urine pH Ur Specific [place] Urine Protein Urine Glucose (UA) Urine Ketones Urine Blood Urine Nitrate Urine Bilirubin Urine Urobilinogen Ur Leukocyte Esterase Urine RBC (Auto) Urine Microscopic WBC Ur Squamous Epith Cells Assessment & Plan (1) Fever Assessment and Plan: POD#4 s/p left shoulder arthroscopy no suspicion of shoulder post operative infection, site clean, no drainage or erythema low grade temp, no leukocytosis, lungs clear, suspect atelectasis, patient instructed to use IS 10x q1h while awake urinalysis negative upper extremity doppler prelim negative for DVT no clinical suspicion of lower extremity DVT, no calf pain or swelling, negative Homans sign patient seen and examined with Dr. Madison, recommend d/c home on keflex 500mg PO BID f/u in office in 1 week d/w Dr. Madison, agrees with above Status: Acute
[2019-01-15] MEDS ORDERED: Enoxaparin 40 mg Syringe SC SCH (09:00)
[2019-01-15] MEDS ORDERED: Enoxaparin 60 mg Syringe SC SCH (10:15)
--- NOTE | 2019-01-15 10:47 | US ---
Date of service: 01/14/2019 PROCEDURE: Left Upper Extremity Venous Doppler HISTORY: swollen, warm elbow after L shoulder sx COMPARISON: None available. TECHNIQUE: Left upper extremity deep veins, including the lower internal jugular, subclavian, axillary and brachial veins, were evaluated flow, compressibility and respiratory phasicity. FINDINGS: Normal flow, compressibility and respiratory phasicity was observed in the the left upper extremity deep veins. IMPRESSION: No evidence of deep venous thrombosis. The preliminary findings for this examination were reported by [facility] Radiology at 12:42 a.m. on 01/15/2019. There is concurrence of this report with the preliminary findings.
[2019-01-15 13:10] VITALS: BP 105/63; PULSE 64; RESP 16; TEMP 98.6; O2SAT 99
== END 2019-01-15 12:49 | disposition home or self-care (01) ==
LOC: H.ER 20:49 → H.ERHOLD 01-15 02:42 → UNDOADMIN 01-15 02:42 → H.ER 01-15 12:49
DX: L03.114 Cellulitis of left upper limb (principal); R50.9 Fever, unspecified; E03.9 Hypothyroidism, unspecified; E78.00 Pure hypercholesterolemia, unspecified; I48.91 Unspecified atrial fibrillation; K58.9 Irritable bowel syndrome, unspecified
CPT/HCPCS: 80048; 81003; 82803; 84145; 85025; 85651; 87040; 93971; 96365; 96372; 99285; J1650; J7030